=== PATIENT | female | born 1945 | race Caucasian/White ===

== ENCOUNTER 2017-08-11 11:47 | Emergency (ER) | payer OTHER ==
[2017-08-11] MEDS ORDERED: TETANUS & DIPHTHERIA TOX,ADULT 0.5 ML VIAL ONE (13:25)
[2017-08-11] MEDS ORDERED: LIDOCAINE 1% MPF 2 ML AMPULE ONE (13:29)
--- NOTE | 2017-08-11 15:06 | EDPHYS ---
Physician Documentation [facility] Name: Marilou Moody Age: 71 yrs Sex: Female : 1945 Arrival Date: 08/11/2017 Time: 11:49 Bed 13 Private MD: Rigo Arita ED Physician Jim Escalante HPI: 08/11 13:51 This 71 yrs old Female presents to ER via Ambulatory with complaints of Hand snw Injury. 13:51 The patient or guardian reports a contusion, a laceration. The complaints affect the snw left hand diffusely. Context: The problem was sustained at a relative's home, resulted from a fall, on an outstretched hand, with kelly jar. Onset: The symptoms/episode began/occurred suddenly, yesterday. Associated signs and symptoms: The patient has no apparent associated signs or symptoms. Severity of symptoms: At their worst the symptoms were mild, moderate. The patient has not experienced similar symptoms in the past. It is unknown whether or not the patient has recently seen a physician. Historical: - Allergies: 11:55 PENICILLINS; sv - Home Meds: 11:55 Bystolic 10 mg oral tab [Active]; cancer pill [Active]; aspirin 81 mg Oral chew sv [Active]; - PMHx: 11:55 breast cancer; Diverticulitis; sv - PSHx: 11:55 double mastectomy; sv - Immunization history:: Adult Immunizations up to date, Last tetanus immunization: unknown. - Social history:: Smoking status: Patient uses tobacco products, smokes one pack cigarettes per day. - Ebola Screening: : No symptoms or risks identified at this time. ROS: 13:50 Constitutional: Negative for fever, chills, and weight loss, Eyes: Negative for injury, snw pain, redness, and discharge, ENT: Negative for injury, pain, and discharge, Neck: Negative for injury, pain, and swelling, Cardiovascular: Negative for chest pain, palpitations, and edema, Respiratory: Negative for shortness of breath, cough, wheezing, and pleuritic chest pain, Abdomen/GI: Negative for abdominal pain, nausea, vomiting, diarrhea, and constipation, Back: Negative for injury and pain, : Negative for injury, bleeding, discharge, and swelling, Neuro: Negative for headache, weakness, numbness, tingling, and seizure. 13:50 MS/extremity: Positive for injury or acute deformity, tenderness, of the heel of left hand. 13:50 Skin: Positive for laceration(s), of the heel of left hand. Exam: 13:48 Constitutional: This is a well developed, well nourished patient who is awake, alert, snw and in no acute distress. Head/Face: Normocephalic, atraumatic. Eyes: Pupils equal round and reactive to light, extra-ocular motions intact. Lids and lashes normal. Conjunctiva and sclera are non-icteric and not injected. Cornea within normal limits. Periorbital areas with no swelling, redness, or edema. ENT: Nares patent. No nasal discharge, no septal abnormalities noted. Tympanic membranes are normal and external auditory canals are clear. Oropharynx with no redness, swelling, or masses, exudates, or evidence of obstruction, uvula midline. Mucous membranes moist. Neck: Trachea midline, no thyromegaly or masses palpated, and no cervical lymphadenopathy. Supple, full range of motion without nuchal rigidity, or vertebral point tenderness. No Meningismus. Chest/axilla: Normal chest wall appearance and motion. Nontender with no deformity. No lesions are appreciated. Cardiovascular: Regular rate and rhythm with a normal S1 and S2. No gallops, murmurs, or rubs. Normal PMI, no JVD. No pulse deficits. 13:48 Abdomen/GI: Soft, non-tender, with normal bowel sounds. No distension or tympany. No guarding or rebound. No evidence of tenderness throughout. Back: No spinal tenderness. No costovertebral tenderness. Full range of motion. MS/ Extremity: Pulses equal, no cyanosis. Neurovascular intact. Full, normal range of motion. Neuro: Awake and alert, GCS 15, oriented to person, place, time, and situation. Cranial nerves II-XII grossly intact. Motor strength 5/5 in all extremities. Sensory grossly intact. Cerebellar exam normal. Normal gait. 13:48 Respiratory: the patient does not display signs of respiratory distress, Respirations: normal, Breath sounds: bronchial sounds, chronic harsh cough. 13:48 Skin: Appearance: normal except for affected area, injury, laceration(s), the wound is approximately 2 cm(s), with a depth of 1 cm(s), of the heel of left hand. Vital Signs: 11:55 BP 205 / 71; Pulse 73; Resp 20; Temp 98.4; Pulse Ox 96% ; Weight 64.86 kg; Height 5 ft. sv 2 in. (157.48 cm); Pain 3/10; 13:00 BP 199 / 92; Pulse 72; Resp 19; Pulse Ox 99% on R/A; rb1 14:00 BP 189 / 80; Pulse 79; Resp 18; Pulse Ox 100% on R/A; rb1 15:00 BP 185 / 75; Pulse 67; Resp 18; Pulse Ox 99% on R/A; rb1 11:55 Body Mass Index 26.15 (64.86 kg, 157.48 cm) sv Laceration: 15:10 Wound Repair of 2.8cm ( 1.1in ) subcutaneous laceration to heel of left hand. snw Irregularly shaped.. Moderate contamination.. Distal neuro/vascular/tendon intact. Anesthesia: Local anesthetic administered with 4 mls of 1% lidocaine. Wound prep: Extensive cleansing with hibiclenz by me. Skin closed with 4 4-0 Prolene using simple sutures and sterile technique. Dressed with pressure dressing. Patient tolerated well. MDM: 12:41 Patient medically screened. snw 15:09 Data reviewed: vital signs, nurses notes. Data interpreted: Pulse oximetry: on room air snw is 96 %. Interpretation: acceptable. Counseling: I had a detailed discussion with the patient and/or guardian regarding: the historical points, exam findings, and any diagnostic results supporting the discharge/admit diagnosis, the presence of at least one elevated blood pressure reading (>120/80) during this emergency department visit, the need for outpatient follow up, to return to the emergency department if symptoms worsen or persist or if there are any questions or concerns that arise at home. Special discussion: I have referred the patient to see his PCP for further evaluation of high blood pressure. I discussed in detail with the patient the higher chance of wound infection based on his presenting history. Based on the history and exam findings, there is no indication for further emergent testing or inpatient evaluation. I discussed with the patient/guardian the need to see the primary care provider for further evaluation of the symptoms. 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 Exp: rb1 11/09/2019. Lot #: [id number]. } Route: IM; Site: left deltoid; 13:50 Follow up: Response: No adverse reaction rb1 13:36 Drug: Lidocaine (1 %) 5 mg Route: Infiltration; rb1 13:36 Drug: Hibiclens 4 % 1 application Route: Topical; Site: left hand; rb1 Disposition: 08/12 07:24 Co-signature as Attending Physician, Blanca GARCIA. [place] Disposition: 08/11/17 15:06 Discharged to Home. Impression: Fall on same level from slipping, tripping and stumbling, Laceration without foreign body of left hand - delayed closure. - Condition is Stable. - Discharge Instructions: Delayed Wound Closure, Fall Prevention and Home Safety, Laceration Care, Adult, Sutured Wound Care, Wound Infection. - Prescriptions for Tylenol- Codeine #3 300-30 mg Oral Tablet - take 2 tablets by ORAL route every 6 hours As needed; 16 tablet. Doxycycline Hyclate 100 mg Oral Tablet - take 1 tablet by ORAL route every 12 hours; 20 tablet. - Medication Reconciliation Form, Thank You Letter, Antibiotic Education, Prescription Opioid Use form. - Follow up: Rigo Arita MD; When: 10 - 14 days; Reason: Recheck today's complaints, Continuance of care, Staple/Suture removal, Re-evaluation by your physician. Follow up: Emergency Department; When: As needed; Reason: Worsening of condition. Signatures: Dispatcher [employer] Soni Ponce RN RN Blanca Grigsby FNP-C FNP-Mihaela Echevarria RN RN rb1 Jim Escalante MD MD gs Corrections: (The following items were deleted from the chart) 08/11 15:24 15:06 08/11/2017 15:06 Discharged to Home. Impression: Fall on same level from rb1 slipping, tripping and stumbling; Laceration without foreign body of left hand - delayed closure. Condition is Stable. Forms are Medication Reconciliation Form, Thank You Letter, Antibiotic Education, Prescription Opioid Use. Follow up: Rigo Arita; When: 10 - 14 days; Reason: Recheck today's complaints, Continuance of care, Staple/Suture removal, Re-evaluation by your physician. Follow up: Emergency Department; When: As needed; Reason: Worsening of condition. snw
--- NOTE | 2017-08-11 15:06 | ER ---
Nurse's Notes [facility] Name: Marilou Moody Age: 71 yrs Sex: Female : 1945 Arrival Date: 08/11/2017 Time: 11:49 Bed 13 Private MD: Rigo Arita Diagnosis: Fall on same level from slipping, tripping and stumbling;Laceration without foreign body of left hand-delayed closure Presentation: 08/11 11:51 Presenting complaint: Patient states: s/p fall yesterday, pt was holding a jar in her sv left hand and when falling the jar broke in her hand. Pt reports there may still be glass stuck in her left hand. Laceration noted to palm. Transition of care: patient was not received from another setting of care. Onset of symptoms was August 10, 2017. 11:51 Method Of Arrival: Ambulatory sv 11:51 Acuity: CAROLINA 3 sv 11:52 Risk Assessment: Do you want to hurt yourself or someone else? Patient reports no sv desire to harm self or others. Initial Sepsis Screen: Does the patient meet any 2 criteria? No. Patient's initial sepsis screen is negative. Does the patient have a suspected source of infection? No. Patient's initial sepsis screen is negative. Care prior to arrival: Injury dressed. Historical: - Allergies: 11:55 PENICILLINS; sv - Home Meds: 11:55 Bystolic 10 mg oral tab [Active]; cancer pill [Active]; aspirin 81 mg Oral chew sv [Active]; - PMHx: 11:55 breast cancer; Diverticulitis; sv - PSHx: 11:55 double mastectomy; sv - Immunization history:: Adult Immunizations up to date, Last tetanus immunization: unknown. - Social history:: Smoking status: Patient uses tobacco products, smokes one pack cigarettes per day. - Ebola Screening: : No symptoms or risks identified at this time. Screenin:30 Abuse screen: Denies threats or abuse. Nutritional screening: No deficits noted. rb1 Tuberculosis screening: Fall Risk None identified. Assessment: 12:30 General: Appears in no apparent distress. comfortable, Behavior is calm, cooperative, rb1 Denies fever. Pain: Complains of pain in heel of left hand Pain currently is 7 out of 10 on a pain scale. Pain began 1 day ago. Neuro: Level of Consciousness is awake, alert, obeys commands, Oriented to person, place, time, situation. Cardiovascular: Capillary refill < 3 seconds is brisk in bilateral fingers. Respiratory: Airway is patent Respiratory effort is even, unlabored, Respiratory pattern is regular, symmetrical. GI: No signs and/or symptoms were reported involving the gastrointestinal system. : No signs and/or symptoms were reported regarding the genitourinary system. Derm: Skin is dry, Skin is normal, Skin temperature is warm. Musculoskeletal: Range of motion: intact in all extremities. Injury Description: Laceration sustained to heel of left hand is contaminated, jagged, not bleeding, was sustained 1 day ago. no active bleeding noted at this time. 13:30 Reassessment: Patient appears in no apparent distress at this time. No changes from rb1 previously documented assessment. 14:25 Reassessment: Patient appears in no apparent distress at this time. Patient and/or rb1 family updated on plan of care and expected duration. Pain level reassessed. Patient is alert, oriented x 3, equal unlabored respirations, skin warm/dry/pink. Vital Signs: 11:55 BP 205 / 71; Pulse 73; Resp 20; Temp 98.4; Pulse Ox 96% ; Weight 64.86 kg; Height 5 ft. sv 2 in. (157.48 cm); Pain 3/10; 13:00 BP 199 / 92; Pulse 72; Resp 19; Pulse Ox 99% on R/A; rb1 14:00 BP 189 / 80; Pulse 79; Resp 18; Pulse Ox 100% on R/A; rb1 15:00 BP 185 / 75; Pulse 67; Resp 18; Pulse Ox 99% on R/A; rb1 11:55 Body Mass Index 26.15 (64.86 kg, 157.48 cm) sv ED Course: 11:49 Patient arrived in ED. sb2 11:50 Rigo Arita MD is Private Physician. sb2 11:53 Triage completed. sv 11:55 Arm band placed on right wrist. sv 11:57 Patient placed in waiting room. sv 12:27 Blanca Grigsby FNP-C is [facility]. snw 12:27 Jim Escalante MD is Attending Physician. snw 12:30 Mihaela Carter, CAMRON is Primary Nurse. rb1 12:30 Patient has correct armband on for positive identification. Bed in low position. Call rb1 light in reach. Side rails up X 1. Pulse ox on. NIBP on. 13:20 Hand Left 3 View XRAY In Process Unspecified. EDMS 15:05 Rigo Arita MD is Referral Physician. snw 15:23 Assist provider with laceration repair Set up tray. Patient did not have IV access rb1 during this emergency room visit. 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 Exp: rb1 11/09/2019. Lot #: [id number]. } Route: IM; Site: left deltoid; 13:50 Follow up: Response: No adverse reaction rb1 13:36 Drug: Lidocaine (1 %) 5 mg Route: Infiltration; rb1 13:36 Drug: Hibiclens 4 % 1 application Route: Topical; Site: left hand; rb1 Outcome: 15:06 Discharge ordered by . snw 15:23 Discharged to home ambulatory, with family. rb1 15:23 Condition: stable 15:23 Discharge instructions given to patient, Instructed on discharge instructions, follow up and referral plans. medication usage, Demonstrated understanding of instructions, follow-up care, medications, Prescriptions given X 2. 15:24 Patient left the ED. rb1 Signatures: Dispatcher [employer] Soni Ponce, RN RN Blanca Flores, ADMINISTRATIVE SERVICES ASSISTANT-C ADMINISTRATIVE SERVICES ASSISTANT-Vivianaw Mihaela Carter, RN RN rb1 Maryjane Gastelum2
--- NOTE | 2017-08-11 15:13 | RAD REPORT ---
EXAM DESCRIPTION: RAD - Hand Left 3 View - 08/11/2017 1:21 pm CLINICAL HISTORY: Slip and fall, hand pain COMPARISON: None. FINDINGS: No fracture, dislocation or periosteal reaction noted. IP joint space narrowing with mild spurring changes seen. No erosive component. Probable metacarpal articulation degenerative changes ar e present as well. No air or foreign body in the soft tissues. IMPRESSION: Left hand degenerative changes are present but no acute fracture is identifiable.
== END 2017-08-11 15:24 | disposition home or self-care (01) ==
LOC: ER 11:47
PROC: 0HQGXZZ Repair Left Hand Skin, External Approach (ICD-10-PCS; principal; 2017-08-11)
DX: S61.412A Laceration without foreign body of left hand, initial encounter (principal); F17.210 Nicotine dependence, cigarettes, uncomplicated; W25.XXXA Contact with sharp glass, initial encounter; Y93.9 Activity, unspecified; Y92.9 Unspecified place or not applicable; Y99.9 Unspecified external cause status; Z23 Encounter for immunization; Z88.0 Allergy status to penicillin
CPT/HCPCS: 12001; 73130; 90714; 99284; J2001

== ENCOUNTER → 2022-05-17 | Day surgery (SDC) | payer OTHER ==
--- NOTE | 2022-05-17 11:42 | RAD REPORT ---
EXAM DESCRIPTION: US - AXILLA ONLY - 05/17/2022 11:21 am CLINICAL HISTORY: Z85.3 COMPARISON: AXILLA ONLY dated 05/11/2022 FINDINGS: The patient was initially scheduled for ultrasound-guided biopsy of enlarged left axillary lymph node. Upon pre-procedure ultrasound, several benign lymph lymph nodes were noted in the left a xilla, with cortical thickness below 3 mm threshold. No suspicious lymph node seen for biopsy. IMPRESSION: No suspicious lymph nodes seen left axilla for biopsy at this time. Continued clinical a nd sonographic follow-up surveillance may be considered.
== END ==
LOC: DS 10:14
PROVIDERS: ATTEND Surgery
DX: Z85.3 Personal history of malignant neoplasm of breast (principal); Z53.8 Procedure and treatment not carried out for other reasons
CPT/HCPCS: 76882

== ENCOUNTER 2023-09-05 14:16 | Inpatient (IN) | payer OTHER ==
--- NOTE | 2023-09-05 14:51 | RAD REPORT ---
EXAM DESCRIPTION: RAD - Chest Single View - 09/05/2023 2:46 pm CLINICAL HISTORY: HTN COMPARISON: Chest Pa And Lat (2 Views) dated 07/31/2023; Chest Pa And Lat (2 Views) dated 08/26/2020; Chest Pa And Lat (2 Views) dated 01/20/2020 FINDINGS: Lines: None. Lungs: No evidence of edema or pneumonia. Pleural: No significant pleural effusions or pneumothorax. Cardiac: The heart size is within normal limits. Mediastinum: Within normal limits. Bones: No acute fractures. Other: None IMPRESSION: No acute cardiopulmonary disease.
[2023-09-05 14:57] LABS: Absolute Basophils 0.1 K/uL (0-0.5); Absolute Eosinophils 0.1 K/uL (0-0.5); Absolute Lymphocytes (CBC) 2.5 K/uL (0.7-4.9); Absolute Monocytes 0.6 K/uL (0.1-1.3); Absolute Neutrophil 3.9 K/uL (1.8-8.0); Basophils % 1.1 % (0-1.3); Eosinophils % 1.6 % (0-4.4); Hematocrit 45.9 % (36.0-45.0); Hemoglobin 15.3 g/dL (12.0-15.0); Lymphocytes % 34.3 % (15.3-44.8); MCH 30.1 pg (27.0-35.0); MCHC 33.3 g/dL (32.0-36.0); MCV 90.4 fL (80-100); MPV 9.8 fL (7.6-11.3); Monocytes % 8.7 % (3.3-12.3); Neutrophils % 54.3 % (41.7-73.7); Platelets 133 thou/uL (152-406); RBC Red Blood Cell Count 5.08 M/uL (3.86-4.86); Red Cell Distribution Width 14.7 % (12.1-15.2)
[2023-09-05 15:14] LABS: Anion Gap 7.5 mEq/L (5.0-15.0); Potassium 3.5 mEq/L (3.5-5.1)
[2023-09-05] MEDS ORDERED: HYDRALAZINE HCL 20 MG/ML VIAL ONE (15:36)
--- NOTE | 2023-09-05 15:50 | ER ---
Nurse's Notes [facility] Name: Marilou Moody Age: 78 yrs Sex: Female : 1945 Arrival Date: 09/05/2023 Time: 14:16 Bed 20 Private MD: Diagnosis: Essential (primary) hypertension;Bradycardia, unspecified;Dizziness and giddiness Presentation: 09/04 14:22 Chief complaint: Patient states: PLANNED FOR LAP BRIAN TODAY BUT BP 225/66 IN PRE-OP. db Coronavirus screen: Client denies travel out of the [place] in the last 14 days. At this time, the client does not indicate any symptoms associated with coronavirus-19. Ebola Screen: Patient negative for fever greater than or equal to 101.5 degrees Fahrenheit, and additional compatible Ebola Virus Disease symptoms Patient denies exposure to infectious person. Patient denies travel to an Ebola-affected area in the 21 days before illness onset. No symptoms or risks identified at this time. Initial Sepsis Screen: Does the patient meet any 2 criteria? No. Patient's initial sepsis screen is negative. Does the patient have a suspected source of infection? No. Patient's initial sepsis screen is negative. Risk Assessment: Do you want to hurt yourself or someone else? Patient reports no desire to harm self or others. Onset of symptoms was September 05, 2023. 14:22 Method Of Arrival: Ambulatory db 14:22 Acuity: CAROL[place] 2 db Triage Assessment: 14:25 General: Appears in no apparent distress. comfortable, Behavior is calm, cooperative. db Pain: Denies pain. EENT: No deficits noted. No signs and/or symptoms were reported regarding the EENT system. Neuro: Level of Consciousness is awake, alert, obeys commands, Oriented to person, place, time, situation, Speech is normal. Cardiovascular: No deficits noted. Respiratory: Airway is patent Respiratory effort is even, unlabored, Respiratory pattern is regular, symmetrical. GI: No deficits noted. No signs and/or symptoms were reported involving the gastrointestinal system. : No deficits noted. No signs and/or symptoms were reported regarding the genitourinary system. Derm: No deficits noted. No signs and/or symptoms reported regarding the dermatologic system. Musculoskeletal: No deficits noted. No signs and/or symptoms reported regarding the musculoskeletal system. Historical: - Allergies: 14:24 PENICILLINS; db - PMHx: 14:24 breast cancer; Diverticulitis; db - PSHx: 14:25 MASTECTOMY; db - Immunization history:: Adult Immunizations unknown. - Infectious Disease History:: Denies. - Social history:: Smoking status: Patient/guardian denies using tobacco, Stopped _ months ago 2. - Family history:: not pertinent. - Hospitalizations: : No recent hospitalization is reported. Screenin:27 [facility] ED Fall Risk Assessment (Adult) History of falling in the last 3 months, db including since admission No falls in past 3 months (0 pts) Confusion or Disorientation No (0 pts) Intoxicated or Sedated No (0 pts) Impaired Gait No (0 pts) Mobility Assist Device Used No (0 pt) Altered Elimination No (0 pt) Score/Fall Risk Level 0 - 2 = Low Risk Oriented to surroundings, Maintained a safe environment. Abuse screen: Denies threats or abuse. Denies injuries from another. Nutritional screening: No deficits noted. Tuberculosis screening: No symptoms or risk factors identified. Assessment: 14:26 Reassessment: Patient appears in no apparent distress at this time. Patient and/or db family updated on plan of care and expected duration. Pain level reassessed. Patient is alert, oriented x 3, equal unlabored respirations, skin warm/dry/pink. General: Appears in no apparent distress. comfortable, Behavior is calm, cooperative. Neuro: Level of Consciousness is awake, alert, obeys commands, Oriented to person, place, time, situation. 16:16 Reassessment: Patient appears in no apparent distress at this time. Patient and/or db family updated on plan of care and expected duration. Pain level reassessed. Patient is alert, oriented x 3, equal unlabored respirations, skin warm/dry/pink. Patient states feeling better. Patient states symptoms have improved. Pain: Denies pain. Cardiovascular: No deficits noted. Respiratory: No deficits noted. Airway is patent Respiratory effort is even, unlabored, Respiratory pattern is regular, symmetrical. GI: No deficits noted. No signs and/or symptoms were reported involving the gastrointestinal system. : No deficits noted. No signs and/or symptoms were reported regarding the genitourinary system. EENT: No deficits noted. No signs and/or symptoms were reported regarding the EENT system. Derm: No deficits noted. No signs and/or symptoms reported regarding the dermatologic system. Musculoskeletal: No deficits noted. No signs and/or symptoms reported regarding the musculoskeletal system. 17:57 Reassessment: Patient appears in no apparent distress at this time. Patient and/or db family updated on plan of care and expected duration. Pain level reassessed. Patient is alert, oriented x 3, equal unlabored respirations, skin warm/dry/pink. 19:05 Reassessment: Patient appears in no apparent distress at this time. Patient and/or db family updated on plan of care and expected duration. Pain level reassessed. Patient is alert, oriented x 3, equal unlabored respirations, skin warm/dry/pink. 19:28 Reassessment: report faxed to [facility], confirmed by Paul. General: Appears in no apparent tm6 distress. Behavior is calm, cooperative. Vital Signs: 14:22 BP 218 / 68; Pulse 50; Resp 18; Temp 97(TE); Pulse Ox 98% ; Weight 53.07 kg; Height 5 db ft. 2 in. ; 14:30 BP 203 / 98; Pulse 46; Resp 18; Pulse Ox 98% on R/A; db 15:00 BP 224 / 61; Pulse 51; Resp 22; Pulse Ox 97% ; db 15:30 BP 209 / 71; Pulse 52; Resp 18; Pulse Ox 98% on R/A; db 16:00 BP 201 / 61; Pulse 50; Resp 14; Pulse Ox 98% on R/A; db 16:30 BP 196 / 67; Pulse 65; Resp 18; Pulse Ox 99% on R/A; db 17:00 BP 190 / 61; Pulse 60; Resp 18; Pulse Ox 95% on R/A; db 17:30 BP 184 / 53; Pulse 63; Resp 18; Pulse Ox 95% on R/A; db 18:30 BP 103 / 66; Pulse 66; Resp 20; Pulse Ox 96% on R/A; db 19:26 BP 145 / 113; Pulse 53; Resp 19; Pulse Ox 98% on R/A; tm6 14:22 Body Mass Index 21.40 (53.07 kg, 157.48 cm) ED Course: 14:17 Patient arrived in ED. ra3 14:18 Danita Dill, CAMRON is Primary Nurse. db 14:24 Miguel Sargent MD is Attending Physician. rn 14:24 Claire Ace FNP-C is [facility]. kb 14:24 Triage completed. db 14:25 Arm band placed on Patient placed in an exam room. db 14:26 Inserted saline lock: 20 gauge in left antecubital area, using aseptic technique. db ,using aseptic technique. IV PLACED BY PRE-OP. 14:48 XRAY Chest (1 view) In Process Unspecified. EDMS 15:48 Tyrell Newberry is Hospitalizing Provider. rn 16:16 Patient has correct armband on for positive identification. Placed in gown. Bed in low db position. Call light in reach. Side rails up X 1. Provided Education on: ADMISSION. Client placed on continuous cardiac and pulse oximetry monitoring. NIBP monitoring applied. pvc monitor on. Pulse ox on. NIBP on. Warm blanket given. Pillow given. 19:05 Report given to CAMRON BURNETT. db 19:16 Safia Davis RN is Primary Nurse. tm6 20:00 No provider procedures requiring assistance completed. Patient admitted, IV remains in tm6 place. Administered Medications: 15:42 CANCELLED (Duplicate Order): [id number] mg IVP once rn 15:57 Drug: hydrALAZINE IVP 5 mg IVP once Route: IVP; Site: left antecubital; db Medication: 16:16 VIS not applicable for this client. db Outcome: 15:49 Decision to Hospitalize by Provider. rn 20:00 Admitted to Med/surg accompanied by nurse, room 219, with chart, tm6 20:00 Condition: stable 20:00 Instructed on the need for admit, 20:01 Patient left the ED. tm6 Signatures: Dispatcher [employer] EDNM Claire Ace FNP-C FNP-Miguel Talley MD MD rn Benton, Danielle, RN RN db Masterson, Tawney, RN RN tm6 Hoa Jimenez ra3
--- NOTE | 2023-09-05 15:50 | EDPHYS ---
Physician Documentation [facility] Name: Marilou Moody Age: 78 yrs Sex: Female : 1945 Arrival Date: 09/05/2023 Time: 14:16 Bed 20 Private MD: ED Physician Miguel Sargent HPI: 09/04 15:44 This 78 yrs old Female presents to ER via Ambulatory with complaints of High Blood rn Pressure. 15:44 The patient has elevated blood pressure and discovered this Operating room. Onset: The rn symptoms/episode began/occurred today. Modifying factors:. Severity of symptoms: At its worst the blood pressure was severe, in the emergency department the blood pressure is unchanged. It is unknown whether or not the patient has had similar symptoms in the past. Patient was getting preop for cholecystectomy today, noted to have severely elevated blood pressure, sent to ER for possible admission and blood pressure management. Patient denies headache or chest pain or shortness of breath. Patient also reports 3 weeks of intermittent dizziness, states took her blood pressure medication today. Historical: - Allergies: 14:24 PENICILLINS; db - PMHx: 14:24 breast cancer; Diverticulitis; db - PSHx: 14:25 MASTECTOMY; db - Immunization history:: Adult Immunizations unknown. - Infectious Disease History:: Denies. - Social history:: Smoking status: Patient/guardian denies using tobacco, Stopped _ months ago 2. - Family history:: not pertinent. - Hospitalizations: : No recent hospitalization is reported. ROS: 15:44 Constitutional: Negative for fever, chills, and weight loss, Cardiovascular: Negative rn for chest pain, palpitations, and edema, Respiratory: Negative for shortness of breath, cough, wheezing, and pleuritic chest pain, Abdomen/GI: Positive for right upper quadrant abdominal pain and nausea. Positive for anorexia MS/Extremity: Negative for injury and deformity, Neuro: Negative for headache, weakness, numbness, tingling, and seizure, Exam: 15:01 ECG was reviewed by the Attending Physician. rn Vital Signs: 14:22 BP 218 / 68; Pulse 50; Resp 18; Temp 97(TE); Pulse Ox 98% ; Weight 53.07 kg; Height 5 db ft. 2 in. ; 14:30 BP 203 / 98; Pulse 46; Resp 18; Pulse Ox 98% on R/A; db 15:00 BP 224 / 61; Pulse 51; Resp 22; Pulse Ox 97% ; db 15:30 BP 209 / 71; Pulse 52; Resp 18; Pulse Ox 98% on R/A; db 16:00 BP 201 / 61; Pulse 50; Resp 14; Pulse Ox 98% on R/A; db 16:30 BP 196 / 67; Pulse 65; Resp 18; Pulse Ox 99% on R/A; db 17:00 BP 190 / 61; Pulse 60; Resp 18; Pulse Ox 95% on R/A; db 17:30 BP 184 / 53; Pulse 63; Resp 18; Pulse Ox 95% on R/A; db 18:30 BP 103 / 66; Pulse 66; Resp 20; Pulse Ox 96% on R/A; db 19:26 BP 145 / 113; Pulse 53; Resp 19; Pulse Ox 98% on R/A; tm6 14:22 Body Mass Index 21.40 (53.07 kg, 157.48 cm) db MDM: 14:24 Patient medically screened. rn 15:47 Differential diagnosis: hypertensive crisis, Malignant HTN, Medication side effect, rn symptomatic bradycardia. Data reviewed: vital signs, nurses notes, lab test result(s), EKG, radiologic studies, plain films, and as a result, I will admit patient. Consideration of Admission/Observation Patient was admitted/placed on observation. Escalation of care including admission/observation considered. Independent interpretation of the following test(s) in the Emergency Department EKG: See my EKG interpretation above X-Ray: My interpretation is Chest x-ray images negative for pneumonia thorax per my interpretation. Care significantly affected by the following chronic conditions: Hypertension. Counseling: I had a detailed discussion with the patient and/or guardian regarding the historical points, exam findings, and any diagnostic results supporting the discharge/admit diagnosis, lab results, radiology results, the need for further work-up and treatment in the hospital. Response to treatment: the patient's symptoms have mildly improved after treatment, and as a result, I will admit patient. 15:49 ED course: I personally spent 35 minutes engaged in work directly related to the rn individual patient's care. This does not include any time spent performing procedures. The patient has been deemed critically ill because of need for IV antihypertensive due to malignant hypertension, review of medical records and imaging, and organization of admission to the hospital.. 09/04 14:26 Order name: Basic Metabolic Panel; Complete Time: 15:30 rn 09/04 14:26 Order name: CBC with Diff; Complete Time: 15:30 rn 09/04 14:26 Order name: NT PRO-BNP; Complete Time: 15:30 rn 09/04 14:26 Order name: Troponin HS; Complete Time: 15:30 rn 09/04 16:38 Order name: T4 Free EDMS 09/04 16:38 Order name: Thyroid Stimulating Hormone EDMS 09/04 16:38 Order name: Urinalysis w/ reflexes EDMS 09/04 16:38 Order name: Basic Metabolic Panel EDMS 09/04 16:38 Order name: Basic Metabolic Panel EDMS 09/04 16:38 Order name: Basic Metabolic Panel EDMS 09/04 16:38 Order name: Basic Metabolic Panel EDMS 09/04 16:38 Order name: CBC with Automated Diff EDMS 09/04 16:38 Order name: CBC with Automated Diff EDMS 09/04 16:38 Order name: CBC with Automated Diff EDMS 09/04 16:38 Order name: CBC with Automated Diff EDMS 09/04 16:38 Order name: Magnesium EDMS 09/04 16:38 Order name: Magnesium EDMS 09/04 16:38 Order name: Magnesium EDMS 09/04 16:38 Order name: Magnesium EDMS 09/04 16:38 Order name: Phosphorus EDMS 09/04 16:38 Order name: Phosphorus EDMS 09/04 16:38 Order name: Phosphorus EDMS 09/04 16:38 Order name: Phosphorus EDMS 09/04 16:38 Order name: Troponin High Sensitivity EDMS 09/04 16:38 Order name: Troponin High Sensitivity EDMS 09/04 16:38 Order name: Troponin High Sensitivity EDMS 09/04 14:26 Order name: XRAY Chest (1 view); Complete Time: 15:30 rn 09/04 14:26 Order name: EKG; Complete Time: 14:26 rn 09/04 16:38 Order name: EKG Electrocardiogram EDMS 09/04 14:26 Order name: Cardiac monitoring; Complete Time: 15:04 rn 09/04 14:26 Order name: EKG - Nurse/Tech; Complete Time: 15:04 rn 09/04 14:26 Order name: IV Saline Lock; Complete Time: 15:04 rn 09/04 14:26 Order name: Labs collected and sent; Complete Time: 15: rn 09/04 14: Order name: O2 Per Protocol; Complete Time: : rn 09/04 14: Order name: O2 Sat Monitoring; Complete Time: 15: rn EC:01 Rate is 45 beats/min. Rhythm is regular. QRS [place] is Normal. MA interval is normal. QRS rn interval is normal. QT interval is normal. No Q waves. T waves are Inverted in leads V3, V4, V6. No ST changes noted. Clinical impression: Sinus bradycardia. Interpreted by me. Reviewed by me. Administered Medications: 15:42 CANCELLED (Duplicate Order): [id number] mg IVP once rn 15:57 Drug: hydrALAZINE IVP 5 mg IVP once Route: IVP; Site: left antecubital; db Disposition Summary: 09/05/23 15:49 Hospitalization Ordered Notes: Hospitalization Status: Observation rn Provider: Tyrell Newberry [facility]n Condition: Stable rn Problem: new rn Symptoms: have improved rn Bed/Room Type: Standard rn Room Assignment: 219(09/05/23 18:44) bd Diagnosis - Essential (primary) hypertension rn - Bradycardia, unspecified rn - Dizziness and giddiness rn Forms: - Medication Reconciliation Form rn - SBAR form rn - Leadership Thank You Letter state's attorney time excluding procedures: 15:49 Critical care time: Bedside Care: 25 minutes, Consultation: 5 minutes, Family rn Intervention: 5 minutes. Total time: 35 minutes Signatures: Dispatcher [employer] EDMS Sheryl Aleman Roman, MD MD rn Benton, Danielle, RN RN db Corrections: (The following items were deleted from the chart) 14:26 14:26 BASIC METABOLIC PANEL+C.LAB.BRZ ordered. EDMS EDMS 14:26 14:26 CBC+H.LAB.BRZ ordered. EDMS EDMS 14:26 14:26 PROBNP+C.LAB.BRZ ordered. EDMS EDMS 14:26 14:26 Troponin High Sensitivity+C.LAB.BRZ ordered. EDMS EDMS 15:42 15:30 hydrALAZINE IVP 10 mg IVP once ordered. rn rn 18:44 15:49 rn sung
--- NOTE | 2023-09-05 15:59 | P.HP ---
Certification for Inpatient Patient admitted to: Inpatient With expected LOS: >2 Midnights Patient will require the following post-hospital care: None Practitioner: I am a practitioner with admitting privileges, knowledge of patient current condition, hospital course, and medical plan of care. Services: Services provided to patient in accordance with Admission requirements found in Title 42 Section 412.3 of the Code of Federal Regulations Patient History Date of Service: 09/05/23 Reason for admission: HTN emergency, symptomatic bradycardia History of Present Illness: Marilou Moody is a 78 year old female with Pmhx HTN, breast cancer (mastectomy), diverticullitis who was brought to the ED from the operating room for severely elevated blood pressure and bradycardia. Marilou states she has high blood pressure and takes Bystolic daily. She reports intermittent dizziness for the past three days. Dr. Welch will plan for cholecystectomy in the morning. Initial vitals BP 218 / 68; Pulse 50; Resp 18; Temp 97(TE); Pulse Ox 98%. Laboratory evaluation unremarkable. X-ray report "No acute cardiopulmonary disease." Marilou will be admitted to hospitalist service for further treatment of hypertensive emergency and symptomatic bradycardia. Allergies Penicillins Allergy (Verified 05/19/15 08:57) Anaphylaxis Home Medications: Nebivolol HCl [Bystolic] 20 mg PO DAILY 05/05/15 - Past Medical/Surgical History -: Breast cancer -: Hypertension -: Diverticulitis -: hysterectomy -: appendectomy -: breast CA -: mastectomy - Family History Family History: Reviewed- Non-Contributory - Social History Smoking Status: Former smoker (2 and half months ago) Alcohol use: No CD- Drugs: No Caffeine use: Yes Review of Systems Neurological: Other (Intermittent dizziness) Physical Examination - Physical Exam General: Alert, In no apparent distress, Oriented x3 HEENT: Atraumatic, Normocephalic, PERRLA Neck: Supple, 2+ carotid pulse no bruit, JVD not distended Respiratory: Clear to auscultation bilaterally, Normal air movement Cardiovascular: Normal pulses, Normal S1 S2, Irregular heart rate/rhythm (Bradycardia) Capillary refill: <2 Seconds Gastrointestinal: Normal bowel sounds, Soft and benign Musculoskeletal: No clubbing Integumentary: No rashes Neurological: Normal speech, Normal tone - Studies Laboratory Data (last 24 hrs) 09/05/23 09/05/23 14:48 14:48 WBC 7.20 Hgb 15.3 H Hct 45.9 H Plt Count 133 L Sodium 137 Potassium 3.5 BUN 11 Creatinine 0.86 Glucose 93 Assessment and Plan - Plan Assessment plan Hypertensive emergency in a patient with history of hypertension Symptomatic bradycardia Prolonged QT -Hydralazine as needed -Continuous telemetry -Cardiology consult for clearance -EKG 7 AM -QT/QTc 510/441-hold medications that prolong QT Acute cholecystitis -Dr. Welch to the OR in the a.m. -N.p.o. after midnight -Perioperative antibiotics per Dr. Welch -No Zofran or Phenergan due to prolonged QT History of breast cancer with mastectomy -Follow-up outpatient -Supportive care DVT PPx SCDs Full code LOS 2 days Discharge Plan: Home Plan to discharge in: 48 Hours - Advance Directives Does patient have a Living Will: No Does patient have a Durable POA for Healthcare: No
[2023-09-05] MEDS ORDERED: ACETAMINOPHEN 500 MG TAB PO PRN (16:30)
[2023-09-05 17:51] LABS: Thyroid Stimulating Hormone 1.55 uIU/mL (0.358-3.740)
[2023-09-05] MEDS: HYDRALAZINE HCL 20 MG/ML VIAL IV PRN (22:37)
[2023-09-05 22:45] VITALS: BMI 21.4
[2023-09-05 23:32] LABS: Specific Gravity 1.011 (1.005-1.030); Sqamous Epithelial None Seen /HPF (None Seen); Urine Bacteria None Seen /HPF (<20); Urine Bilirubin NEGATIVE (Negative); Urine Blood Negative (Negative); Urine Clarity Clear (Clear); Urine Color Colorless (Yellow); Urine Culture Reflex Order NOT NEEDED; Urine Glucose NEGATIVE (Negative); Urine Ketones 1+ (Negative); Urine Microscopic Reflex YN ORDER UMIC; Urine Nitrite NEGATIVE (Negative); Urine Protein TRACE (Negative); Urine RBC <5 /HPF (None Seen); Urine Urobilinogen Normal (Normal); Urine WBC <5 /HPF (<5); Urine pH 6.5 (5.0-7.0)
[2023-09-06] MEDS: MORPHINE 4 MG/ML SYR IV ONE (04:32)
[2023-09-06 09:15] LABS: Absolute Basophils 0.1 K/uL (0-0.5); Absolute Eosinophils 0.1 K/uL (0-0.5); Absolute Lymphocytes (CBC) 2.3 K/uL (0.7-4.9); Absolute Monocytes 0.6 K/uL (0.1-1.3); Absolute Neutrophil 4.7 K/uL (1.8-8.0); Eosinophils % 1.2 % (0-4.4); Hematocrit 47.7 % (36.0-45.0); Hemoglobin 15.9 g/dL (12.0-15.0); Lymphocytes % 29.6 % (15.3-44.8); MCH 29.7 pg (27.0-35.0); MCHC 33.2 g/dL (32.0-36.0); MCV 89.3 fL (80-100); MPV 9.7 fL (7.6-11.3); Monocytes % 7.7 % (3.3-12.3); Neutrophils % 60.5 % (41.7-73.7); Nucleated RBC Absolute Count 0.3 (0-0); Nucleated Red Blood Cells % 4.4 % (0-0); Platelets 145 thou/uL (152-406); RBC Red Blood Cell Count 5.35 M/uL (3.86-4.86); Red Cell Distribution Width 14.6 % (12.1-15.2)
[2023-09-06] MEDS ORDERED: NITROGLYCERIN 0.4 MG/TAB SL PRN (09:17)
[2023-09-06 09:30] LABS: Anion Gap 7.4 mEq/L (5.0-15.0); Phosphorus 3.9 mg/dL (2.5-4.9); Potassium 3.4 mEq/L (3.5-5.1); Troponin High Sensitivity 9.7 pg/mL (<58.9)
[2023-09-06] MEDS: NEBIVOLOL HCL 20 MG TABLET PO SCH (09:30)
[2023-09-06] MEDS: POTASSIUM 25 MEQ EFFERV TAB PO ONE (10:00)
[2023-09-06] MEDS: lisinopriL 20 MG TAB PO ONE (10:00)
[2023-09-06 10:03] LABS: Differential Total Cells Count 100; Eosinophils 3 % (0-3); Lymphocytes 29 % (15-42); Monocytes 8 % (0-10); Segmented Neutrophils 57 % (40-80)
[2023-09-06 10:04] LABS: Blood Morphology Comment NOT SEEN (NOT SEEN); Platelet Estimate ADEQ
[2023-09-06] MEDS ORDERED: MORPHINE 4 MG/ML SYR IV PRN (10:28)
--- NOTE | 2023-09-06 10:41 | P.CNS ---
Date of Consult: 09/06/23 Chief Complaint: HTN emergency, symptomatic bradycardia History of Present Illness: Patient with PMH of HTN presented with abdominal pain and diarrhea, was suppose to have GB removal surgery, found to have high BP and slow HR so surgery was aborted, patient denies any active cardiac issues, no chest pain, no SOB, no palpitations, no syncope. Allergies Penicillins Allergy (Verified 09/05/23 22:27) Anaphylaxis Home Medications: Nebivolol HCl [Bystolic] 20 mg PO DAILY 05/05/15 hydroCHLOROthiazide [Hydrochlorothiazide] 12.5 mg PO SEECOM 09/05/23 - Past Medical/Surgical History -: Breast cancer -: Hypertension -: Diverticulitis -: hysterectomy -: appendectomy -: breast CA -: mastectomy - Social History Smoking Status: Current every day smoker Alcohol use: Yes CD- Drugs: No Caffeine use: Yes Place of Residence: Home Review of Systems 10-point ROS is otherwise unremarkable Physical Examination Temp Pulse Resp BP Pulse Ox 97.3 F 56 18 153/55 H 93 09/06/23 08:00 09/06/23 10:00 09/06/23 08:00 09/06/23 10:09/06/23 08:00 General: Alert, In no apparent distress HEENT: Atraumatic, PERRLA, Mucous membr. moist/pink, EOMI, Sclerae nonicteric Neck: Supple, 2+ carotid pulse no bruit, No LAD, Without JVD or thyroid abnormality Respiratory: Clear to auscultation bilaterally, Normal air movement Cardiovascular: Regular rate/rhythm, Normal S1 S2 Gastrointestinal: Normal bowel sounds, No tenderness Musculoskeletal: No tenderness Integumentary: No rashes Neurological: Normal gait, Normal speech, Normal tone, Normal affect Lymphatics: No axilla or inguinal lymphadenopathy Laboratory Data (last 24 hrs) 09/05/23 09/05/23 14:48 14:48 WBC 7.20 Hgb 15.3 H Hct 45.9 H Plt Count 133 L Sodium 137 Potassium 3.5 BUN 11 Creatinine 0.86 Glucose 93 - Problems (1) Encounter for pre-operative cardiovascular clearance Current Visit: Yes Status: Acute Plan: Patient is active and can do more than 4 METs and denies having any chest pain, Patient is cleared for surgery as low cardiac risk. (2) Hypertension Onset Date: 06/01/16 Current Visit: No Status: Acute Plan: Stop Bystolic Start Lisinopril 20 mg daily Continue HCTZ 12.5 mg daily get Echo (3) Bradycardia Current Visit: Yes Status: Acute Plan: Most likely secondary to Bystolic use, hold and monitor on tele.
[2023-09-06] MEDS: PNEUMOCOCCAL VACCINE 0.5 ML IMVAC ONE (12:00)
--- NOTE | 2023-09-06 12:19 | ECHO ---
HEIGHT: 5 ft 2 in WEIGHT: 117 lb 0 oz DATE OF STUDY: 09/06/[address]: Luca Talamantes MD 2-DIMENSIONAL: YES M.MODE: YES DOPPLER: YES COLOR FLOW: YES TDS: PORTABLE: DEFINITY: BUBBLE STUDY: DIAGNOSIS: CARDIAC CLEARANCE/ ELEVATED BLOOD PRESSURE CARDIAC HISTORY: CATHERIZATION: SURGERY: PROSTHETIC VALVE: PACEMAKER: MEASUREMENTS (cm) DIASTOLIC (NORMALS) SYSTOLIC (NORMALS) IVSd 0.9 (0.6-1.2) LA Diam 3.6 (1.9-4.0) LVEF 60-65% LVIDd 4.2 (3.5-5.7) LVIDs 2.7 (2.0-3.5) %FS 37% LVPWd 1.0 (0.6-1.2) Ao Diam 2.6 (2.0-3.7) 2 DIMENSIONAL ASSESSMENT: RIGHT ATRIUM: NORMAL LEFT ATRIUM: NORMAL RIGHT VENTRICLE: NORMAL LEFT VENTRICLE: MILD LEFT VENTRICULAR HYPERTROPHY TRICUSPID VALVE: NORMAL MITRAL VALVE: TRACE MITRAL REGURGITATION PULMONIC VALVE: NORMAL AORTIC VALVE: MILD AORTIC REGURGITATION PERICARDIAL EFFUSION: NONE AORTIC ROOT: NORMAL LEFT VENTRICULAR WALL MOTION: NORMAL DOPPLER/COLOR FLOW: GRADE I DIASTOLIC DYSFUNCTION COMMENTS: 1. NORMAL LEFT VENTRICULAR SYSTOLIC FUCNTION, EJECTION FRACTION 60-65%, NORMAL WALL MOTION 2. GRADE I DIASTOLIC DYSFUNCTION 3. MILD CONCENTRIC LEFT VENTRICULAR HYPERTROPHY 4. MILD AORTIC REGURGITATION TECHNOLOGIST: JORGE JARRETT
--- NOTE | 2023-09-06 14:09 | EKG ---
Test Date: 2023-09-05 Test Time: 14:42:58 Caregiver Assisted Living: [facility] MEASUREMENT RESULTS: Intervals: Rate: 45 LA: 174 QRSD: 84 QT: 510 QTc: 441 [place]: P: 63 LA: 174 QRS: 2 T: 11 INTERPRETIVE STATEMENTS: Sinus bradycardia T wave abnormality, consider anterolateral ischemia Abnormal ECG Compared to ECG 09/05/2023 12:59:17 No significant changes Electronically Signed On 09-06-23 14:07:04 CDT by Shashank Castaneda
--- NOTE | 2023-09-06 14:10 | EKG ---
Test Date: 2023-09-05 Test Time: 12:57:33 Cotton Candy Maker: JORGE MEASUREMENT RESULTS: Intervals: Rate: 48 MI: 182 QRSD: 82 QT: 474 QTc: 423 [place]: P: 72 MI: 182 QRS: 13 T: 96 INTERPRETIVE STATEMENTS: Marked sinus bradycardia Possible Left atrial enlargement ST & T wave abnormality, consider lateral ischemia Abnormal ECG Compared to ECG 05/05/2015 16:28:27 ST (T wave) deviation now present Sinus rhythm no longer present T-wave abnormality no longer present Possible ischemia still present Electronically Signed On 09-06-23 14:07:19 CDT by Shashank Castaneda
--- NOTE | 2023-09-06 14:49 | P.PN ---
Date of Service: 09/06/23 Subjective Sleeping comfortably in bed Alert and oriented Complaining of generalized discomfort ROS 10 point ROS as noted above, otherwise negative Physical Exam General: Alert and Oriented x3, NAD HEENT: Atraumatic, Normocephalic, PERRLA Neck: Supple, 2+ carotid pulse no bruit, JVD not distended Respiratory: Clear to auscultation bilaterally, Normal air movement Cardiovascular: Normal pulses, Normal S1 S2, Irregular heart rate/rhythm (Bradycardia) Capillary refill: <2 Seconds Gastrointestinal: Normal bowel sounds, Soft and benign on palpation, NT/ND Musculoskeletal: No clubbing Integumentary: No rashes Neurological: Normal speech, Normal tone Vitals Reviewed Problem list Hypertensive emergency in a patient with history of hypertension Symptomatic bradycardia Prolonged QT Acute cholecystitis History of breast cancer with mastectomy Assessment and Plan Hypertensive emergency in a patient with history of hypertension Symptomatic bradycardia Prolonged QT -Troponin 8/7.9/9.7 -Hydralazine as needed -Continuous telemetry -Cardiology cleared for surgery -QT/QTc 510/441-hold medications that prolong QT Acute cholecystitis -Dr. Welch to the OR in the a.m. -N.p.o. after midnight -Perioperative antibiotics per Dr. Welch -No Zofran or Phenergan due to prolonged QT History of breast cancer with mastectomy -Follow-up outpatient -Supportive care DVT PPx SCDs Full code LOS 2 days
[2023-09-07 04:31] LABS: Absolute Basophils 0.1 K/uL (0-0.5); Absolute Eosinophils 0.1 K/uL (0-0.5); Absolute Lymphocytes (CBC) 2.5 K/uL (0.7-4.9); Absolute Monocytes 0.7 K/uL (0.1-1.3); Absolute Neutrophil 3.8 K/uL (1.8-8.0); Basophils % 0.8 % (0-1.3); Eosinophils % 1.8 % (0-4.4); Hematocrit 45.7 % (36.0-45.0); MCH 29.8 pg (27.0-35.0); MCHC 32.9 g/dL (32.0-36.0); MCV 90.5 fL (80-100); MPV 10.3 fL (7.6-11.3); Monocytes % 9.3 % (3.3-12.3); Neutrophils % 53.1 % (41.7-73.7); Nucleated Red Blood Cells % 0.1 % (0-0); Platelets 135 thou/uL (152-406); RBC Red Blood Cell Count 5.05 M/uL (3.86-4.86); Red Cell Distribution Width 14.7 % (12.1-15.2)
[2023-09-07 04:37] LABS: Anion Gap 7.4 mEq/L (5.0-15.0); Magnesium 2.2 mg/dL (1.6-2.4); Phosphorus 3.4 mg/dL (2.5-4.9); Potassium 3.4 mEq/L (3.5-5.1)
[2023-09-07] MEDS: KCL 20 MEQ/100 mL IVPB 20 MEQ/100 ML BAG IV SCH (06:55)
[2023-09-07] MEDS: NA CHLORIDE 0.9% 250 ML ONE (06:58)
[2023-09-07] MEDS: AMLODIPINE 5 MG TAB PO ONE (08:53)
[2023-09-07] MEDS: lisinopriL 20 MG TAB PO SCH (08:54)
--- NOTE | 2023-09-07 09:19 | P.PN ---
Date of Service: 09/07/23 Subjective Resting comfortably in bed Denies significant pain today No acute events overnight Had 2.1 second pause yesterday ROS 10 point ROS as noted above, otherwise negative Physical Exam General: Alert and Oriented x3, NAD HEENT: Atraumatic, Normocephalic, PERRLA Neck: Supple, 2+ carotid pulse no bruit, JVD not distended Respiratory: Clear to auscultation bilaterally, Normal air movement Cardiovascular: Normal pulses, Normal S1 S2, regular heart rate/rhythm Capillary refill: <2 Seconds Gastrointestinal: Normal bowel sounds, Soft and benign on palpation, NT/ND Musculoskeletal: No clubbing Integumentary: No rashes Neurological: Normal speech, Normal tone Vitals Reviewed Problem list Hypertensive emergency in a patient with history of hypertension Symptomatic bradycardia Prolonged QT Acute cholecystitis History of breast cancer with mastectomy Plan Hypertensive emergency in a patient with history of hypertension Symptomatic bradycardia Prolonged QT Troponins negative Starting BP meds, lisinopril, amlodipine Cardiology cleared for surgery QT/QTc 510/441-hold medications that prolong QT Had 2.1 second pause 09/05, asymptomatic Acute cholecystitis Plan for cholecystectomy today avoid Zofran or Phenergan due to prolonged QT History of breast cancer with mastectomy -Follow-up outpatient -Supportive care DVT PPx SCDs-lovenox when ok from surgery Full code LOS 1-2 days
[2023-09-07] MEDS ORDERED: ROCURONIUM 50 MG/5 ML VIAL IV ONE (11:08)
[2023-09-07] MEDS ORDERED: FENTANYL CITR 100 MCG/2 ML ONE ×2 (11:08→12:43)
[2023-09-07] MEDS ORDERED: propofoL 200 MG/20 ML VIAL IV ONE (11:08)
[2023-09-07] MEDS ORDERED: LIDOCAINE 2% MPF 5 ML VIAL ONE (11:09)
[2023-09-07] MEDS: Ringers Lactate 1,000 ML IV ONE (11:41)
[2023-09-07] MEDS: CIPROFLOXACIN 400mg IV 400 MG/200 ML BAG IV ONE (12:00)
[2023-09-07] MEDS: BUPIVACAINE 0.5% PF 10 ML VIAL ONE ×2 (12:09→12:20)
[2023-09-07] MEDS ORDERED: EPHEDRINE SULF 50 MG/ML VIAL ONE (12:09)
[2023-09-07] MEDS ORDERED: Phenylephrine HCl 10 MG/ML 1 ML VIAL ONE (12:12)
[2023-09-07] MEDS ORDERED: NS 0.9% VIAL 10 ML ONE (12:12)
[2023-09-07] MEDS ORDERED: dexAMETHasone 4 MG/ML VIAL ONE (12:28)
[2023-09-07] MEDS ORDERED: ONDANSETRON 4 MG/2 ML VIAL ONE (12:28)
[2023-09-07] MEDS ORDERED: Mastisol Adhesive Liq ONE (12:31)
[2023-09-07] MEDS ORDERED: NEOSTIGMINE 1 MG/ML -10 ML VIAL ONE (12:37)
[2023-09-07] MEDS ORDERED: GLYCOPYRROLATE 0.2 MG/ML SYR ONE (12:37)
--- NOTE | 2023-09-07 12:39 | P.BOP ---
Preoperative diagnosis: intractable abdominal pain, cholecystitis, gallbladder polyps, HTN Postoperative diagnosis: same Primary procedure: Laparoscopic cholecystectomy Registered Appraiser: Ladonna Wheatley (Angelia) Estimated blood loss: <10c Specimen: gb Findings: as above Anesthesia: General Complications: None Drain(s): Other Transferred to: Recovery Room Condition: Good
[2023-09-07 13:11] VITALS: TEMP 97
[2023-09-07 13:32] VITALS: O2SAT 95
[2023-09-07] MEDS: POTASSIUM 25 MEQ EFFERV TAB PO ONE (13:57)
[2023-09-07 15:46] VITALS: BP 133/59
--- NOTE | 2023-09-07 17:05 | OP ---
Date of Procedure: 09/07/2023 Surgeon: Guanakito Welch MD Documentation Engineer: Ladonna Tarango. Preoperative Diagnoses: Intractable abdominal pain, cholecystitis, gallbladder polyps, hypertension. Postoperative Diagnoses: Intractable abdominal pain, cholecystitis, gallbladder polyps, hypertension . Procedure: Laparoscopic cholecystectomy. Estimated Blood Loss: Less than 10 cc. Specimen: Gallbladder. Anesthesia: General plus local. Complications: None. Indications: This is a case of a 78-year-old patient, who came with abdominal pain. Extensive radha p, imaging, and also by the primary doctor and machine rug cleaner sent to us with gallbladder polyps and also a right upper quadrant abdominal pain. We also noticed that she has pains in different part of the abdomen. Workup has not revealed any other pathology. She was advised the importance of see ing the machine rug cleaner and fully explained that this will not be relief of her pain. She underst ood also the concept of gallbladder polyps and she does not want to wait or find that in the future o r have any followup. She wants the gallbladder removed, so we can biopsy those polyps. The benefits , alternatives, and risks of this surgery which include, but not limited to, infection, bleeding, dam age to adjacent structures, anesthesia complication, choledocholithiasis, bile leak, chronic pancreat itis, CT, and even . She also understands this may not relieve any symptoms. She might need mo re than one surgical intervention. She signed a consent. I had to mention that this case was booked for 2 days ago. When she came to the hospital, she was fo und to have a blood pressure of at least 225 systolic, treated many times, difficult to bring down. So she was admitted to the hospital for medical intervention. 2 days later, she has improved, medica lly cleared and she wants to do the surgery while she is still here. She was advised when she gets d ischarged to follow up in my office in a week. No heavy lifting. HM/MODL Voice ID: [id number] Report ID: [id number]
--- NOTE | 2023-09-07 17:18 | P.DS ---
Admission Date: 09/05/23 Discharge Date: 09/07/23 Disposition: ROUTINE DISCHARGE Discharge Condition: GOOD Reason for Admission: HTN emergency, symptomatic bradycardia Consultations: Cardiology- Dr. Talamantes General surgery-Dr. Welch Procedures: Laparoscopic cholecystectomy 08/29 Brief History of Present Illness: Marilou Moody is a 78 year old female with Pmhx HTN, breast cancer (mastectomy), diverticullitis who was brought to the ED from the operating room for severely elevated blood pressure and bradycardia. Marilou states she has high blood pressure and takes Bystolic daily. She reports intermittent dizziness for the past three days. Dr. Welch will plan for cholecystectomy in the morning. Hospital Course: Problem list Hypertensive emergency in a patient with history of hypertension Symptomatic bradycardia Prolonged QT Acute cholecystitis History of breast cancer with mastectomy Vital Signs/Physical Exam: Temp Pulse Resp BP Pulse Ox 97 F 61 15 133/59 L 98 09/07/23 15:37 09/07/23 15:37 09/07/23 15:37 09/07/23 15:37 09/07/23 15:37 General: Alert, In no apparent distress, Oriented x3 HEENT: Atraumatic, PERRLA Neck: Supple, JVD not distended Respiratory: Clear to auscultation bilaterally, Normal air movement Cardiovascular: Regular rate/rhythm, Normal S1 S2 Gastrointestinal: Normal bowel sounds, No tenderness Musculoskeletal: No tenderness Integumentary: No rashes Neurological: Normal speech, Normal tone Laboratory Data at Discharge: WBC 7.20 thou/uL (4.3-10.9) 09/07/23 02:31 Hgb 15.0 g/dL (12.0-15.0) 09/07/23 02:31 Hct 45.7 % (36.0-45.0) H 09/07/23 02:31 Plt Count 135 thou/uL (152-406) L 09/07/23 02:31 Sodium 136 mEq/L (136-145) 09/07/23 02:31 Potassium Cancelled 09/07/23 17:00 BUN 16 mg/dL (7-18) 09/07/23 02:31 Creatinine 0.83 mg/dL (0.55-1.02) 09/07/23 02:31 Glucose 94 mg/dL (74-106) 09/07/23 02:31 Phosphorus 3.4 mg/dL (2.5-4.9) 09/07/23 02:31 Magnesium 2.2 mg/dL (1.6-2.4) 09/07/23 02:31 Home Medications: hydroCHLOROthiazide [Hydrochlorothiazide] 12.5 mg PO SEECOM 09/05/23 Amlodipine [Norvasc*] 5 mg PO DAILY #30 tab 09/07/23 lisinopriL [Lisinopril] 20 mg PO DAILY #30 tab 09/07/23 New Medications: lisinopriL [Lisinopril] 20 mg PO DAILY #30 tab Amlodipine [Norvasc*] 5 mg PO DAILY #30 tab Physician Discharge Instructions: Patient was admitted to hospital for hypertensive urgency, bradycardia that was found when she was going to the operating room for cholecystectomy. She was seen by cardiology who discontinued her Bystolic and recommended starting lisinopril 20mg daily. Cardiology determined patient was low risk for complications with anesthesia and she underwent a laparoscopic cholecystectomy on 09/06 without significant complication. Blood pressure much improved on the lisinopril 10 mg daily and amlodipine 5 mg daily. Bystolic has been discontinued. Please follow-up with your primary care doctor in 1 to 2 weeks Please also follow-up with Dr. Welch in 1 week Prescriptions for pain, nausea and antibiotic sent to your pharmacy by general surgeryDrRuddy Welch I have sent prescriptions for the lisinopril and amlodipine for your blood pressure to [facility] in [place] as well Diet: Quay Activity: Ad huey Followup: Guanakito Welch MD [ACTIVE - CAN ADMIT] - 1 Week Rigo Arita MD [Primary Care Provider] - 1-2 Weeks Time spent managing pt's care (in minutes): 35
[2023-09-07] MEDS: HYDROCODONE/APAP 7.5/325 MG TAB PO ONE (17:55)
[2023-09-08] MEDS ORDERED: AMLODIPINE 5 MG TAB PO SCH (09:00)
== END 2023-09-07 18:13 | disposition home or self-care (01) | DRG 988 ==
LOC: ER 14:16 → ERHOLD 16:30 → 2ND 19:59
PROVIDERS: ADMIT Internal Medicine; ATTEND Internal Medicine
PROC: 0FT44ZZ Resection of Gallbladder, Percutaneous Endoscopic Approach (ICD-10-PCS; principal; 2023-09-07 12:00)
DX: I16.1 Hypertensive emergency (principal); K81.0 Acute cholecystitis; I10 Essential (primary) hypertension; R00.1 Bradycardia, unspecified; R94.31 Abnormal electrocardiogram [ECG] [EKG]; Z88.0 Allergy status to penicillin; Z85.3 Personal history of malignant neoplasm of breast; Z88.8 Allergy status to other drugs, medicaments and biological substances; Z90.10 Acquired absence of unspecified breast and nipple; Z90.49 Acquired absence of other specified parts of digestive tract; Z87.891 Personal history of nicotine dependence; Z90.710 Acquired absence of both cervix and uterus
CPT/HCPCS: 36415; 71045; 80048; 80076; 81001; 83690; 83735; 83880; 84100; 84439; 84443; 84484; 85025; 88304; 93005; 93306; 96374; 99285; A4216; J0360; J0744; J1100; J2001; J2371; J2405; J2704; J2710; J3010; J3480; J7050; J7120

== ENCOUNTER → 2023-09-05 | Day surgery (SDC) | payer OTHER ==
[~2023-09-05] MED LIST: BUPIVACAINE 0.5% PF 10 ML VIAL ONE; CIPROFLOXACIN 400mg IV 0 MG/0 ML BAG IV ONE; FENTANYL CITR 100 MCG/2 ML ONE; LIDOCAINE 1% MPF 5 ML VIAL ONE; ONDANSETRON 4 MG/2 ML VIAL ONE; ROCURONIUM 50 MG/5 ML VIAL IV ONE; Ringers Lactate 0 ML IV ONE; propofoL 200 MG/20 ML VIAL IV ONE
[2023-09-05 13:26] LABS: Absolute Basophils 0.1 K/uL (0-0.5); Absolute Eosinophils 0.1 K/uL (0-0.5); Absolute Lymphocytes (CBC) 2.5 K/uL (0.7-4.9); Absolute Monocytes 0.7 K/uL (0.1-1.3); Basophils % 0.7 % (0-1.3); Eosinophils % 1.6 % (0-4.4); Hematocrit 45.8 % (36.0-45.0); Lymphocytes % 33.4 % (15.3-44.8); MCH 29.5 pg (27.0-35.0); MCHC 32.8 g/dL (32.0-36.0); MPV 9.7 fL (7.6-11.3); Monocytes % 9.7 % (3.3-12.3); Neutrophils % 54.6 % (41.7-73.7); Nucleated Red Blood Cells % 0.2 % (0-0); Platelets 141 thou/uL (152-406); RBC Red Blood Cell Count 5.08 M/uL (3.86-4.86); Red Cell Distribution Width 14.6 % (12.1-15.2)
[2023-09-05] MEDS: Ringers Lactate 1,000 ML IV ONE (13:40)
[2023-09-05 13:43] LABS: Albumin 3.3 g/dL (3.4-5.0); Albumin/Globulin Ratio 0.9 (1.1-1.8); Alkaline Phosphatase 39 U/L (45-117); Anion Gap 5.6 mEq/L (5.0-15.0); BUN Blood Urea Nitrogen 11 mg/dL (7-18); Bicarbonate 29 mEq/L (21-32); Bilirubin Direct 0.3 mg/dL (0-0.2); Bilirubin Indirect, Calculated 0.5 mg/dL (0.2-0.8); Bilirubin Total 0.8 mg/dL (0.2-1.0); Globulin 3.5 g/dL (2.3-3.5); Glomerular Filtration Rate 66 ml/min (=/>90); Glucose Level 97 mg/dL (74-106); Lipase 27 U/L (13-75); Potassium 3.6 mEq/L (3.5-5.1); Protein, Total 6.8 g/dL (6.4-8.2); Sodium Level 136 mEq/L (136-145)
[2023-09-05 13:44] LABS: ALT/SGPT < 14 U/L (13-56); AST/SGOT < 10 U/L (15-37)
[2023-09-05 14:36] VITALS: BP 211/55; TEMP 98.4; O2SAT 96
--- NOTE | 2023-09-06 14:10 | EKG ---
Test Date: 2023-09-05 Test Time: 12:59:17 Soybean Grower: JORGE MEASUREMENT RESULTS: Intervals: Rate: 47 NE: 182 QRSD: 82 QT: 470 QTc: 415 [place]: P: 65 NE: 182 QRS: 0 T: 86 INTERPRETIVE STATEMENTS: Marked sinus bradycardia T wave abnormality, consider anterolateral ischemia Abnormal ECG Compared to ECG 09/05/2023 12:57:33 T-wave abnormality now present ST (T wave) deviation no longer present Possible ischemia still present Electronically Signed On 09-06-23 14:07:18 CDT by Shashank Castaneda
== END ==
LOC: OR 12:43
PROVIDERS: ATTEND Surgery
DX: K81.0 Acute cholecystitis (principal); Z53.09 Procedure and treatment not carried out because of other contraindication
CPT/HCPCS: 85025; 80048; 36415; 80076; 83690; J7120; 93005; J0744; J2001; J2405; J2704; J3010

== ENCOUNTER 2023-11-26 08:03 | Day surgery (SDC) | payer OTHER ==
[2023-11-22 10:00] LABS: Absolute Eosinophils 0.1 K/uL (0-0.5); Absolute Monocytes 0.6 K/uL (0.1-1.3); Absolute Neutrophil 5.4 K/uL (1.8-8.0); Basophils % 0.6 % (0-1.3); Eosinophils % 1.6 % (0-4.4); Hematocrit 44.3 % (36.0-45.0); Lymphocytes % 24.1 % (15.3-44.8); MCH 30.3 pg (27.0-35.0); MCHC 33.9 g/dL (32.0-36.0); MCV 89.3 fL (80-100); MPV 9.7 fL (7.6-11.3); Monocytes % 6.8 % (3.3-12.3); Neutrophils % 66.9 % (41.7-73.7); Nucleated Red Blood Cells % 0.1 % (0-0); Platelets 186 thou/uL (152-406); RBC Red Blood Cell Count 4.96 M/uL (3.86-4.86); Red Cell Distribution Width 14.9 % (12.1-15.2)
[2023-11-22 10:06] LABS: PT Prothrombin Time 10.6 SECONDS (9.4-12.5); PTT, Activated Partial Thromb 37.4 SECONDS (24.3-36.9); Protime INR 0.94
[2023-11-22 10:15] LABS: Anion Gap 11.3 mEq/L (5.0-15.0); Potassium 3.3 mEq/L (3.5-5.1)
--- NOTE | 2023-11-22 16:20 | EKG ---
Test Date: 2023-11-22 Test Time: 09:49:15 Segregator: [place] MEASUREMENT RESULTS: Intervals: Rate: 73 TN: 164 QRSD: 86 QT: 378 QTc: 416 [place]: P: 81 TN: 164 QRS: 63 T: -55 INTERPRETIVE STATEMENTS: Normal sinus rhythm T wave abnormality, consider inferior ischemia T wave abnormality, consider anterolateral ischemia Abnormal ECG Compared to ECG 09/05/2023 14:42:58 Sinus bradycardia no longer present T-wave abnormality still present Possible ischemia still present Electronically Signed On 11-22-23 16:19:39 CDT by Luca Talamantes
[2023-11-26] MEDS ORDERED: NA CHLORIDE 0.9% 500 ML ONE (08:05)
[2023-11-26] MEDS ORDERED: ATROPINE SULF 1 MG/10 ML SYR IV ONE (09:48)
[2023-11-26] MEDS ORDERED: HEPARIN 10,000 UNIT/10 ML VIAL IV ONE (09:48)
[2023-11-26] MEDS ORDERED: LIDOCAINE 1% 20 ML MDV ONE (09:48)
[2023-11-26] MEDS ORDERED: MIDAZOLAM HCL 2 MG/2 ML INJ ONE (09:48)
[2023-11-26] MEDS ORDERED: HEPA 1000U/500MLS 2,000 UNIT/1,000 ML BAG IV ONE (09:48)
[2023-11-26] MEDS ORDERED: FENTANYL CITR 100 MCG/2 ML ONE (09:49)
[2023-11-26 11:45] VITALS: O2SAT 99
[2023-11-26 13:16] VITALS: BP 148/61
--- NOTE | 2023-11-26 18:03 | OP ---
Date of Procedure: 11/26/2023 Surgeon: Luca Talamantes Procedure Performed: Lower abdominal aortogram with peripheral runoff. Indication For Procedure: Claudication, abnormal WILDER. Complications: None. Estimated Blood Loss: Less than 50 cc. Access: Right common femoral artery closed by Angio-Seal. Sedation Time: 20 minutes with 2 of Versed and 50 of fentanyl. Description Of Procedure: After risks, benefits, and alternatives were explained to the patient, pat ient agreed to proceed with procedure and signed informed consent. The patient was brought back to [facility] technician, prepped and draped in a sterile fashion. Time-out was performed. Sedation was administ ered. Next, ultrasound-guided right common femoral artery access was obtained. Omni Flush catheter was advanced into the lower abdominal aorta where the lower abdomen angiogram was done. Then, a yane pheral runoff was done was using the same catheter. At the end of procedure, catheter was removed ov er a J-wire. Sheath was removed. Angio-Seal was applied. Hemostasis was achieved. The patient was moved to recovery in stable condition. Findings: 1.Lower abdominal aorta aneurysmal measuring 3.8 cm in diameter. 2.Right common iliac artery diffuse 60% to 70% disease. 3.Right internal iliac artery, occluded. 4.Right external iliac artery, diffuse 60% disease. 5.Right SFA diffuse 60% to 70% disease in the midportion. 6.Right anterior tibial is occluded. 7.Right posterior tibial/peroneal diffuse moderate disease. 8.Left common iliac artery 50% diseased. 9.Left mid external iliac artery is occluded. 10.Left internal iliac artery is patent. 11.Left SFA mid to distal 70% to 90% disease. 12.Left anterior tibial, occluded. 13.Left posterior tibial/peroneal, diffuse moderate disease. Assessment And Plan: 1.Significant bilateral superficial femoral artery disease. 2.Moderate lower abdominal aortic aneurysm measuring 3.8 cm in diameter. 3.Plan will be referred for Vascular Surgery to evaluate for the lower abdominal aortic aneurysms an d possible interventions of bilateral superficial femoral artery. JUNIOR/MODL Voice ID: [id number] Report ID: [id number]
== END 2023-11-26 12:50 | disposition home or self-care (01) ==
LOC: PRE 08:03 → CCL 12:50
PROVIDERS: ATTEND Internal Medicine Interventional Cardiology
DX: I70.213 Atherosclerosis of native arteries of extremities with intermittent claudication, bilateral legs (principal); I70.92 Chronic total occlusion of artery of the extremities; I71.40 Abdominal aortic aneurysm, without rupture, unspecified; I35.1 Nonrheumatic aortic (valve) insufficiency; I10 Essential (primary) hypertension; F17.210 Nicotine dependence, cigarettes, uncomplicated; Z79.899 Other long term (current) drug therapy
CPT/HCPCS: 93005; 85025; 80048; 36415; 85610; 85730; 36200; 75630; 76937; C1893; C1760; G0269; J2001; J2250; J3010; J7040; 99152; J0461